=== PATIENT | female | born 1985 | race Caucasian/White ===

== ENCOUNTER → 2016-08-24 | Outpatient (CLI) | payer OTHER ==
[2016-08-24 11:10] LABS: CH 32.5; CHCM 33.6; HCT 31.2 % (34.0-46.0); HDW 3.57; HGB 10.3 gm/dL (11.4-16.0); MCH 32.2 pg (25.0-35.0); MCHC 32.9 g/dL (31.0-37.0); MCV 97.7 fL (80.0-100.0); Mean Platelet Volume 7.2; Poikilocytosis Slight; RBC 3.19 m/uL (3.80-5.40); RDW 14.4 % (11.5-15.5); WBC 11.3 k/uL (3.8-10.6)
== END | disposition home or self-care (01) ==
LOC: LABWHC1 10:16
PROVIDERS: ATTEND Obstetrics & Gynecology
DX: Z34.92 Encounter for supervision of normal pregnancy, unspecified, second trimester (principal); Z3A.00 Weeks of gestation of pregnancy not specified
CPT/HCPCS: 36415; 82950; 85027

== ENCOUNTER → 2016-09-05 | Outpatient (CLI) | payer OTHER ==
--- NOTE | 2016-09-05 14:52 | US ---
EXAMINATION TYPE: US OB >= 14 wk fetus early third trimester DATE OF EXAM: 09/05/2016 12:55 PM COMPARISON: See PACS first trimester ultrasound May 18, 2016. CLINICAL HISTORY: O36.63X0 LARGE FOR DATES, patient has had [facility] ultras[facility] at office, [facility], she has epilepsy TECHNIQUE: Transabdominal (TA) pelvic ultrasound GESTATIONAL AGE / DATING Physician Established: (28 weeks/4 days) EDC: 11/24/16 Dates by LMP: (28 weeks/4 days) EDC: 11/24/16 Dates by First Scan: (28 weeks/4 days) EDC: 11/22/16 Dates by Current Scan: (28 weeks/5 days) EDC: 11/23/16 SURVEY IUP: Single PLACENTA: Anterior PREVIA: No Previa PATRICK: 10.8 cm CERVICAL LENGTH (transabdominal: norm > 3.0cm): 3.2 cm BIOMETRY PRESENTATION: Vertex LIE: Transverse with head maternal Right BPD: 7.2 cm 29 weeks / 0 days HC: 27.9 cm 29 weeks / 2 days AC: 24.0 cm 28 weeks / 2 days FL: 5.3 cm 28 weeks / 0 days ESTIMATED WEIGHT IN GRAMS: 1206 grams ESTIMATED WEIGHT IN LBS/OZS: 2 lbs. 11 oz. WEIGHT PERCENTAGE BASED ON ESTABLISHED DATES: 27% HC/AC: 1.1 FL/AC: 22.0 HEART RATE: 159 bpm TECHNOLOGIST IMPRESSION: Dates as above. Single live intrauterine gestation is redemonstrated. Normal cephalad presentation to fetus is curren tly identified. An amniotic fluid index is within normal limits. There is no ultrasound evidence for placenta previa. biometry measurements are within normal limits as detailed above on current st udy. IMPRESSION:As above
== END | disposition home or self-care (01) ==
LOC: RADUSWWP 12:21
PROVIDERS: ATTEND Obstetrics & Gynecology
DX: O36.63X0 Maternal care for excessive fetal growth, third trimester, not applicable or unspecified (principal)
CPT/HCPCS: 76805

== ENCOUNTER → 2016-09-27 | Outpatient (CLI) | payer OTHER ==
--- NOTE | 2016-09-27 12:07 | US ---
EXAMINATION TYPE: US OB anatomy transabd DATE OF EXAM: 09/27/2016 10:57 AM COMPARISON: In pacs HISTORY: Large for dates, 3, para 2 TECHNIQUE: Transabdominal (TA) scanning. FINDINGS: EXAM MEASUREMENTS: GESTATIONAL AGE / DATING Physician Established: (31 weeks/5 days) EDC: 11/24/2016 Dates by LMP: (31 weeks/5 days) EDC: 11/24/2016 Dates by First Scan: (32 weeks/0 days) EDC: 11/22/2016 Dates by Current Scan for: (30 weeks/3 days) EDC: 12/03/2016 This is performed 3W1D from the prior scan. On prior exam, the child measured 28W5D. Expected measu rements today would be 31W6D. SURVEY IUP: Single PLACENTA: Fundal / Anterior PREVIA: No previa PATRICK: 15.1 cm Normal CERVICAL LENGTH (transabdominal: norm > 3.0cm): 3.8 cm BIOMETRY PRESENTATION: Vertex LIE: Longitudinal BPD: 7.7 cm 31 weeks / 0 days HC: 27.4 cm 30 weeks / 0 days AC: 27.3 cm 31 weeks / 3 days FL: 5.9 cm 30 weeks / 6 days ESTIMATED WEIGHT IN GRAMS: 1693 grams ESTIMATED WEIGHT IN LBS/OZS: 3 lbs. 12 oz. WEIGHT PERCENTAGE BASED ON ESTABLISHED DATE: 20.1 % vs 27.6%, previously. HC/AC: 1.00 Normal FL/AC: 21.69 Normal HEART RATE: 159 bpm RHYTHM: Normal ANATOMY SEEN (within normal limits): Midline Falx Cavus Septi Pellucidi Four Chamber Heart Outflow tracts: RVOT Stomach Situs Nose / Lips Diaphragm Kidneys (bilateral) Bladder Three Vessel Cord ANATOMY NOT SEEN: Due to advanced age, 3rd trimester Lateral Vent Cisterna Magna Cerebellum (varies with age) Choroid Plexus (bilateral) Outflow tracts: LVOT Longitudinal Spine Transverse Spine Arms (bilateral) Legs (bilateral) Cord Insert IMPRESSION: 1. Single live intrauterine with estimated gestational age of 31 weeks 5 days by LMP. Curre nt ultrasound biometry (30 weeks 3 days) is smaller (with 1W3D less growth than expected from 09/05/16) but still remains concordant and within the range of expected error. Follow-up as clinically indicat ed. Estimated weight percentile has moved from the 28th percentile to the 20th percentile. 2. A number of structures on the survey were suboptimally visualized due to relatively advanced age. Please see above.
== END | disposition home or self-care (01) ==
LOC: RADUSWWP 10:25
PROVIDERS: ATTEND Obstetrics & Gynecology
DX: O36.63X0 Maternal care for excessive fetal growth, third trimester, not applicable or unspecified (principal); Z3A.31 31 weeks gestation of pregnancy
CPT/HCPCS: 76811

== ENCOUNTER → 2016-10-06 | Outpatient (CLI) | payer OTHER | END | disposition home or self-care (01) | LOC: LABWHC1 10:06 | PROVIDERS: ATTEND Psychiatry & Neurology Neurology | DX: Z34.90 Encounter for supervision of normal pregnancy, unspecified, unspecified trimester (principal); Z3A.20 20 weeks gestation of pregnancy | CPT/HCPCS: 36415; 80175 ==

== ENCOUNTER → 2016-10-20 | Outpatient (CLI) | payer OTHER ==
--- NOTE | 2016-10-20 11:28 | US ---
EXAMINATION TYPE: US OB anatomy transabd DATE OF EXAM: 10/20/2016 9:51 AM COMPARISON: Previous study dated 09/27/2016 HISTORY: LGA TECHNIQUE: Transabdominal (TA) EXAM MEASUREMENTS: GESTATIONAL AGE / DATING Physician Established: (35 weeks/0 days) EDC: 11/24/16 Dates by LMP: (35 weeks/0 days) EDC: 11/24/16 Dates by First Scan: (35 weeks/2 days) EDC: 11/22/16 Dates by Current Scan for: (34 weeks/4 days) EDC: 11/27/16 SURVEY IUP: Single PLACENTA: Anterior PREVIA: No previa PATRICK: 11.7 cm CERVICAL LENGTH (transabdominal: norm > 3.0cm): 3.3 cm .) BIOMETRY PRESENTATION: Vertex BPD: 8.7 cm 35 weeks / 1 days HC: 31.7 cm 35 weeks / 5 days AC: 30.7 cm 34 weeks / 5 days FL: 6.3 cm 32 weeks / 4 days ESTIMATED WEIGHT IN GRAMS: 2390 grams ESTIMATED WEIGHT IN LBS/OZS: 5 lbs. 4 oz. WEIGHT PERCENTAGE BASED ON ESTABLISHED DATE: 26% HC/AC: 1.0 FL/AC: 20.5 HEART RATE: 147 bpm RHYTHM: Normal ANATOMY SEEN (within normal limits): Stomach Four Chamber Heart Kidneys (bilateral) Longitudinal Spine Transverse Spine Diaphragm Cavus Septi Pellucidi Midline Falx Nose / Lips ANATOMY NOT SEEN: * Lateral Vent (< 1 cm) cm * Cisterna Magna (< 1.1 cm) cm * Nuchal Fold (< 0.6 cm) cm * Cerebellum (varies with age) cm Choroid Plexus (bilateral) Outflow tracts: LVOT/RVOT Situs Bladder Cord Insert Three Vessel Cord Arms (bilateral) Legs (bilateral) IMPRESSION: DURAN FETUS PRESENT IN A VERTEX LIE WITH A GESTATIONAL AGE OF 34 WEEKS 4 DAYS +/- 3 WEEKS. ESTIMA CLEMENTINE DATE OF CONFINEMENT BASED ON THIS EXAMINATION IS 11/27/2016. PLEASE NOTE THAT THE MORPHOLOGIC EXAMINATION IS LIMITED.
== END | disposition home or self-care (01) ==
LOC: RADUSWWP 09:08
PROVIDERS: ATTEND Obstetrics & Gynecology
DX: O36.63X0 Maternal care for excessive fetal growth, third trimester, not applicable or unspecified (principal); Z3A.34 34 weeks gestation of pregnancy
CPT/HCPCS: 76811

== ENCOUNTER 2016-11-17 06:00 | Inpatient (IN) | payer OTHER ==
--- NOTE | 2016-11-17 06:25 | P.HPOB ---
History of Present Illness H&P Date: 11/17/16 Chief Complaint: Patient is presenting for elective induction of labor. This patient is a pleasant 31-year-old 4 para 2 female estimated date of confinement 11/24/2016 estimated gestational age 39-0/7 weeks who presents to labor and delivery for induction of labor. Patient's is been complicated by known maternal seizure disorder and Lamictal use. Patient has seen maternal medicine has had normal level III and heart echo. She 's had normal nonstress testing and antepartum surveillance. He now presents for delivery. Review of Systems Constitutional: Denies chills, Denies fever Ears, nose, mouth and throat: Denies headache, Denies sore throat Cardiovascular: Denies chest pain, Denies shortness of breath Respiratory: Denies cough Gastrointestinal: Reports heartburn Genitourinary: Reports Menstruation: Reports amenorrhea Integumentary: Denies pruritus, Denies rash Neurological: Reports seizures (Patient has a history of grand mal seizures) Past Medical History Past Medical History: Seizure Disorder (Grand mal seizures) History of Any Multi-Drug Resistant Organisms: None Reported Additional Past Surgical History / Comment(s): Patient has had a D&C for a missed Past Anesthesia/Blood Transfusion Reactions: No Reported Reaction Past Psychological History: No Psychological Hx Reported Smoking Status: Never smoker Past Alcohol Use History: None Reported Past Drug Use History: None Reported Medications and Allergies Home Medications Medication Instructions Recorded Confirmed Type lamoTRIgine [lamoTRIgine] 2 PO 11/17/16 History Allergies Allergy/AdvReac Type Severity Reaction Status Date / Time No Known Allergies Allergy Verified 11/17/16 06:22 Exam - OBG Physical Exam Abdomen: bowel sounds normal, no diffuse tenderness, no bruit present, no guarding noted, no hepatomegaly, no splenomegaly, no mass Vulva: both: normal Cervix: no lesion (Cervix is 2 cm in the office.), no discharge Uterus: enlarged (Fundal height is consistent with a term .) Results blood work shows she is O positive, rubella nonimmune, RPR nonreactive , hepatitis B negative, Glucola was normal, level III ultrasound and heart echo were normal, group B strep was negative (although she has a history of a positive strep in a previous ). Assessment and Plan (1) Elective induction of labor planned Narrative/Plan: This is a anisa 31-year-old 4 para 2 female 39 weeks gestation who presents to labor and delivery for induction of labor. Patient's group B strep was negative, however she has a history of positive strep previous therefore will be treated prophylactically. Plan is induction of labor and anticipate vaginal delivery. Status: Acute (2) Seizure disorder Status: Chronic (3) History of group B Streptococcus (GBS) infection Status: Acute
[2016-11-17] MEDS: LACTATED RINGERS 1,000 ML IV SCH ×3 (06:35→13:05)
[2016-11-17] MEDS ORDERED: AMPICILLIN 2,000 MG in SODIUM CHLORIDE 0.9% 100 ML IVPB STA (06:45)
[2016-11-17] MEDS ORDERED: OXYTOCIN 30 UNITS/500 ML NS 30 UNIT in SALINE 1 500ML.BAG IV SCH (06:45)
[2016-11-17] MEDS ORDERED: TERBUTALINE 1 MG/ML VIAL SQ PRN (06:45)
[2016-11-17] MEDS ORDERED: METHYLERGONOVINE 0.2 MG/ML 1 ML AMP IM PRN (06:45)
[2016-11-17] MEDS ORDERED: OXYTOCIN 10 UNIT/ML 1 ML VIAL IM PRN (06:45)
[2016-11-17] MEDS ORDERED: CARBOPROST TROMETHAMINE 250 MCG/ML 1 ML AMP IM PRN (06:45)
[2016-11-17] MEDS ORDERED: LIDOCAINE 1% (PF) 10 MG/ML (30 ML SDV) SQ PRN (06:45)
[2016-11-17 06:59] LABS: Anisocytosis Slight; Basophils # (A) 0.1 k/uL (0-0.2); Basophils % (A) 1 %; CH 28.1; CHCM 31.9; Eosinophils # (A) 0.1 k/uL (0-0.7); Eosinophils % (A) 1 %; HCT 30.3 % (34.0-46.0); HDW 4.06; HGB 9.8 gm/dL (11.4-16.0); Hypochromasia Moderate; Luc # (Auto) 0.24; Luc % (Auto) 3; Lymphocytes # (A) 2.2 k/uL (1.0-4.8); Lymphocytes % (A) 22 %; MCH 28.6 pg (25.0-35.0); MCHC 32.3 g/dL (31.0-37.0); MCV 88.5 fL (80.0-100.0); Mean Platelet Volume 7.2; Monocytes # (A) 0.6 k/uL (0-1.0); Monocytes % (A) 6 %; Neutrophils # (A) 6.7 k/uL (1.3-7.7); Neutrophils % (A) 68 %; Poikilocytosis Moderate; RBC 3.42 m/uL (3.80-5.40); RDW 16.7 % (11.5-15.5); WBC 9.9 k/uL (3.8-10.6); WBC (Perox) 10.32
[2016-11-17 08:54] VITALS: BMI 30.8
[2016-11-17] MEDS: AMPICILLIN 1,000 MG in SODIUM CHLORIDE 0.9% 50 ML IVPB SCH ×2 (10:57→15:30)
[2016-11-17] MEDS ORDERED: fentaNYL (PF) 50 MCG/ML 5 ML AMP ONE (12:49)
[2016-11-17] MEDS ORDERED: BUPIVACAINE (PF) 0.25% 30 ML VIAL ONE (12:49)
[2016-11-17] MEDS ORDERED: SODIUM CHLORIDE 0.9% 100 ML BAG ONE (12:49)
[2016-11-17] MEDS ORDERED: BUPIVACAINE (PF) 0.25% 25 ML, fentaNYL (PF) 200 MCG in SODIUM CHLORIDE 0.9% 71 ML EPIDURAL ONE (15:01)
[2016-11-17] MEDS ORDERED: ZOLPIDEM 5 MG TAB PO PRN (17:52)
[2016-11-17] MEDS ORDERED: ACETAMINOPHEN TAB 325 MG TAB PO PRN (17:52)
[2016-11-17] MEDS ORDERED: IBUPROFEN 600 MG TAB PO PRN (17:52)
[2016-11-17] MEDS ORDERED: diphenhydrAMINE 50 MG/ML 1 ML VIAL IVP PRN (17:52)
[2016-11-17] MEDS ORDERED: SIMETHICONE 80 MG CHEWABLE PO PRN (17:52)
[2016-11-17] MEDS ORDERED: BENZOCAINE/MENTHOL SPRAY 1 GM/SPRAY AEROSOL TOPICAL PRN (17:52)
[2016-11-17] MEDS ORDERED: diphenhydrAMINE 25 MG CAP PO PRN (17:52)
[2016-11-17] MEDS ORDERED: WITCH HAZEL 1 EACH MED..PAD TOPICAL PRN (17:52)
[2016-11-17] MEDS ORDERED: BISACODYL 10 MG SUPP RECTAL PRN (17:52)
[2016-11-17] MEDS ORDERED: Acetaminophen-Codeine 300-30mg TAB PO PRN ×2 (17:52)
[2016-11-17] MEDS ORDERED: HYDROCORTISONE 2.5% RECTAL CREAM 30 GM TUBE RECTAL PRN (17:52)
[2016-11-17] MEDS ORDERED: LANOLIN CREAM 5 GM TUBE TOPICAL PRN (17:52)
--- NOTE | 2016-11-17 17:57 | P.PROBDLV ---
Vaginal Delivery Note - . Vaginal Delivery Note: Normal vaginal delivery viable male infant Apgars are 9 and 9 delivery time is 1737 hrs. Please see dictated H&P for intimate details of this patient's admission. Brief summary this is a pleasant 31-year-old 4 para 2 female 39-0/7 weeks gestation who is admitted to labor and delivery for induction of labor. On admission patient's cervix is 2-3 cm dilated. She is artificial rupture membranes for clear fluid. Labor is induced with Pitocin per protocol. Patient 's labor did progress. Patient had an epidural for pain control. Patient's labor progresses normally and she gets to complete. She pushes the head to the perineum. Posterior perineum was infiltrated with 1% lidocaine and a midline episiotomy is made. We then have controlled delivery of the 's head over the perineum. Mouth and nares are bulb suctioned. There is no evidence of a nuchal cord. With gentle downward traction we then have delivery the anterior and posterior shoulder and rest this 's body. This is a vigorous viable male infant Apgars are 9 and 9 delivery time is 1737 hrs. After delivery of the the umbilical cord is doubly clamped and cut and appears to be trivascular. Placenta spontaneously delivered intact. Inspection of the perineum shows a first-degree perineal laceration which is repaired with 3-0 Vicryl in the usual fashion. Excellent reapproximation is noted. All counts are correct 3. There are no complications. Infant and mother are stable delivery room.
[2016-11-17] MEDS ORDERED: SENNOSIDES-DOCUSATE SODIUM 1 EACH TAB PO SCH (20:00)
--- NOTE | 2016-11-18 06:42 | P.PNOBGVD ---
Subjective - Subjective Patient reports: Reports appetite normal, Reports voiding normally, Reports pain well controlled, Reports ambulating normally : doing well Objective - Latest Vital Signs Latest vital signs: Vital Signs Temp Pulse Pulse Resp BP BP 11/18/16 04:00 98.1 F 72 16 97/59 11/18/16 00:00 98.4 F 84 16 104/69 11/17/16 19:54 98.2 F 98 98 18 145/70 11/17/16 19:24 98.3 F 75 18 150/70 11/17/16 18:54 88 16 159/77 11/17/16 18:39 88 16 150/80 11/17/16 18:24 83 16 140/75 11/17/16 18:09 88 16 125/70 11/17/16 17:54 98.9 F 84 16 115/55 11/17/16 06:44 97 F L 95 16 115/64 Intake and Output 11/17/16 11/17/16 11/18/16 14:59 22:59 06:59 Intake Total 2200 160.75 900 Output Total 200 Balance 2200 -39.25 900 Intake: IV 2200 900 Ampicillin 1,000 mg In 100 Sodium Chloride 0.9% 50 ml @ 100 mls/hr IVPB Q4H JAMES Rx#:[id number] Ampicillin 2,000 mg In 100 Sodium Chloride 0.9% 100 ml @ 200 mls/hr IVPB ONCE STA Rx#:[id number] Lactated Ringers 1,000 ml 2000 900 @ 125 mls/hr IV .Q8H JAMES Rx#:[id number] Intake, IV Titration 160.75 Amount Oxytocin 30 Units/500 ml 160.75 Ns 30 unit In Saline 1 500ml.bag @ 1 MILLIUNIT/ MIN 1 mls/hr IV .Q24H JAMES Rx#:[id number] Output: Estimated Blood Loss 200 Other: # Voids 2 - Exam Lungs: bilateral: normal Chest: Normal S1, Normal S2 Extremities: Present: normal Abdomen: Present: normal appearance, soft Uterus: Present: normal, firm - Labs Labs: Abnormal Lab Results - Last 24 Hours (Table) 11/17/16 Range/Units 06:35 RBC 3.42 L (3.80-5.40) m/uL Hgb 9.8 L (11.4-16.0) gm/dL Hct 30.3 L (34.0-46.0) % RDW 16.7 H (11.5-15.5) % Assessment and Plan (1) Elective induction of labor planned Narrative/Plan: day #1. Patient is resting without complaints and wishes to go home later today. Vital signs are stable and she is afebrile. Uterus is firm nontender she's having normal lochia. My impression this is a normal course. Plan is to continue routine care discharge home later today. Current Visit: Yes Status: Acute Code(s): [id number] - SNOMED Code(s): 739050789 (2) Seizure disorder Current Visit: Yes Status: Chronic Code(s): G40.909 - EPILEPSY, UNSP, NOT INTRACTABLE, WITHOUT STATUS EPILEPTICUS SNOMED Code(s): 839502936 (3) History of group B Streptococcus (GBS) infection Current Visit: Yes Status: Acute Code(s): Z86.19 - PERSONAL HISTORY OF OTHER INFECTIOUS AND PARASITIC DISEASES SNOMED Code(s): 158485895
--- NOTE | 2016-11-18 06:43 | P.DS ---
Providers Date of admission: 11/17/16 06:13 Expected date of discharge: 11/18/16 Attending physician: Nii Qureshi Primary care physician: Stated None - Discharge Diagnosis(es) (1) Elective induction of labor planned Current Visit: Yes Status: Acute (2) Seizure disorder Current Visit: Yes Status: Chronic (3) History of group B Streptococcus (GBS) infection Current Visit: Yes Status: Acute Hospital Course: Please see dictated H&P for intimate details of this patient's admission. Brief summary this is a pleasant 31-year-old 4 para 2 female admitted to labor and delivery for induction of labor. Patient is admitted has uncomplicated induction of labor goes on have a vaginal delivery viable male . Please dictated delivery note. day #1 patient without complaints and wishes to go home. [place] be stable for discharge home follow up with me in 6 weeks. Procedures: Induction of labor and normal vaginal delivery. Patient Condition at Discharge: Good Plan - Discharge Summary New Discharge Prescriptions: Acetaminophen-Codeine 300-30mg [Tylenol w/codeine #3] 1 - 2 each PO Q4HR PRN # 30 tab PRN Reason: Mild Pain exceeding Tylenol Ibuprofen [Motrin] 600 mg PO Q6HR PRN #40 tab PRN Reason: Mild Pain Or Fever >= 100.5 Discharge Medication List Acetaminophen-Codeine 300-30mg [Tylenol w/codeine #3] 1 - 2 each PO Q4HR PRN # 30 tab 11/17/16 [Rx] Ibuprofen [Motrin] 600 mg PO Q6HR PRN #40 tab 11/17/16 [Rx] lamoTRIgine [lamoTRIgine] 200 mg PO BID 11/17/16 [History] Follow up Appointment(s)/Referral(s): Nii Qureshi MD [STAFF PHYSICIAN] - 12/26/16 8:45 am Patient Instructions/Handouts: Vaginal Delivery (DC) Activity/Diet/Wound Care/Special Instructions: No intercourse or anything per vagina for 6 weeks. Please call if any fever, chills, excessive vaginal bleeding, and/or abdominal pain. Discharge Disposition: HOME SELF-CARE
[2016-11-18 13:43] VITALS: RESP 20
[2016-11-18 17:24] VITALS: BP 111/79; PULSE 84; TEMP 98
== END 2016-11-18 18:15 | disposition home or self-care (01) | DRG 775 ==
LOC: 4FBP 06:13
PROVIDERS: ADMIT Obstetrics & Gynecology; ATTEND Obstetrics & Gynecology
PROC: 10E0XZZ Delivery of Products of Conception, External Approach (ICD-10-PCS; principal; 2016-11-17)
PROC: 10907ZC Drainage of Amniotic Fluid, Therapeutic from Products of Conception, Via Natural or Artificial Opening (ICD-10-PCS; 2016-11-17)
PROC: 0W8NXZZ Division of Female Perineum, External Approach (ICD-10-PCS; 2016-11-17)
PROC: 0HQ9XZZ Repair Perineum Skin, External Approach (ICD-10-PCS; 2016-11-17)
PROC: 3E033VJ Introduction of Other Hormone into Peripheral Vein, Percutaneous Approach (ICD-10-PCS; 2016-11-17)
PROC: 00HU33Z Insertion of Infusion Device into Spinal Canal, Percutaneous Approach (ICD-10-PCS; 2016-11-17)
DX: O99.354 Diseases of the nervous system complicating childbirth (principal); G40.409 Other generalized epilepsy and epileptic syndromes, not intractable, without status epilepticus; Z37.0 Single live birth; O70.0 First degree perineal laceration during delivery; Z3A.39 39 weeks gestation of pregnancy
CPT/HCPCS: 85025; 88307

== ENCOUNTER 2017-01-01 11:56 | Emergency (ER) | payer OTHER ==
--- NOTE | 2017-01-01 12:59 | ED ---
General Adult HPI - General Chief complaint: Chest Pain Stated complaint: CHEST PAIN, FAMILY Hx Time Seen by Provider: 01/01/17 12:25 Source: patient, RN notes reviewed Mode of arrival: ambulatory Limitations: no limitations - History of Present Illness Initial comments: This is a 31-year-old female who presents emergency department stating she started having some chest heaviness last night and then today it continued and she was having some tingling down her arm. Patient states she did have a slight cough but nothing productive. Patient denied any fever or chills. Patient denied making the pain worse with any exertion. Patient denies any swelling in her legs or calf pain. Patient denies any history of diabetes hypertension and high cholesterol or smoking. Patient denies being on any control. Patient denies any family history of heart disease. Patient denies any abdominal pain today. Patient denies nausea vomiting or diarrhea - Related Data Home Medications Medication Instructions Recorded Confirmed lamoTRIgine [lamoTRIgine] 200 mg PO BID 11/17/16 01/01/17 Folic Acid [Folic Acid] 1 mg PO BID 01/01/17 01/01/17 lamoTRIgine [LaMICtal] 25 mg PO BID 01/01/17 01/01/17 Allergies Allergy/AdvReac Type Severity Reaction Status Date / Time No Known Allergies Allergy Verified 01/01/17 13:23 Review of Systems ROS Statement: Those systems with pertinent positive or pertinent negative responses have been documented in the HPI. ROS Other: All systems not noted in ROS Statement are negative. Past Medical History Past Medical History: Seizure Disorder History of Any Multi-Drug Resistant Organisms: None Reported Additional Past Surgical History / Comment(s): Patient has had a D&C for a missed Past Anesthesia/Blood Transfusion Reactions: No Reported Reaction Past Psychological History: No Psychological Hx Reported Smoking Status: Never smoker Past Alcohol Use History: None Reported Past Drug Use History: None Reported - Past Family History Father Family Medical History: Hypertension General Exam - General Exam Comments Initial Comments: GENERAL: Patient is well-developed and well-nourished. Patient is nontoxic and well- hydrated and is in no acute distress. ENT: Neck is soft and supple. No significant lymphadenopathy is noted. Oropharynx is clear. Moist mucous membranes. Neck has full range of motion without eliciting any pain. EYES: The sclera were anicteric and conjunctiva were pink and moist. Extraocular movements were intact and pupils were equal round and reactive to light. Eyelids were unremarkable. PULMONARY: Unlabored respirations. Good breath sounds bilaterally. No audible rales rhonchi or wheezing was noted. CARDIOVASCULAR: There is a regular rate and rhythm without any murmurs gallops or rubs. ABDOMEN: Soft and nontender with normal bowel sounds. No palpable organomegaly was noted. There is no palpable pulsatile mass. SKIN: Skin is clear with no lesions or rashes and otherwise unremarkable. NEUROLOGIC: Patient is alert and oriented x3. Cranial nerves II through XII are grossly intact. Motor and sensory are also intact. Normal speech, volume and content. Symmetrical smile. MUSCULOSKELETAL: Normal extremities with adequate strength and full range of motion. No lower extremity swelling or edema. No calf tenderness. LYMPHATICS: No significant lymphadenopathy is noted PSYCHIATRIC: Normal psychiatric evaluation. Normal interpersonal interactions appears functionally intact in deals appropriately with others. No signs of depression. No signs of anxiety. No delusions. No hallucinations. Limitations: no limitations Course Vital Signs 01/01/17 01/01/17 12:21 12:51 Temperature 98.0 F Pulse Rate 79 79 Respiratory 15 18 Rate Blood Pressure 126/56 113/69 O2 Sat by Pulse 95 95 Oximetry Medical Decision Making - Medical Decision Making EKG shows a normal sinus rhythm at 71 bpm NH interval 136 QRS is 98 QT interval 412 QTC is 447. Patient's EKG shows no ST segment elevation or depression or T wave abnormalities are noted Chest x-ray shows no acute normalities. Patient did not want her oxygen because she was not short of breath. - Lab Data Result diagrams: 01/01/17 13:06 01/01/17 13:06 Lab Results 01/01/17 01/01/17 01/01/17 Range/Units 13:06 13:06 13:06 WBC 5.6 (3.8-10.6) k/uL RBC 4.12 (3.80-5.40) m/uL Hgb 12.0 (11.4-16.0) gm/dL Hct 36.6 (34.0-46.0) % MCV 88.8 (80.0-100.0) fL MCH 29.0 (25.0-35.0) pg MCHC 32.7 (31.0-37.0) g/dL RDW 17.9 H (11.5-15.5) % Plt Count 315 (150-450) k/uL Neutrophils % 74 % Lymphocytes % 18 % Monocytes % 4 % Eosinophils % 1 % Basophils % 1 % Neutrophils # 4.2 (1.3-7.7) k/uL Lymphocytes # 1.0 (1.0-4.8) k/uL Monocytes # 0.2 (0-1.0) k/uL Eosinophils # 0.1 (0-0.7) k/uL Basophils # 0.0 (0-0.2) k/uL Anisocytosis Slight PT (9.0-12.0) sec INR (<1.1) APTT (22.0-30.0) sec Sodium 142 (137-145) mmol/L Potassium 3.8 (3.5-5.1) mmol/L Chloride 105 (98-107) mmol/L Carbon Dioxide 27 (22-30) mmol/L Anion Gap 10 mmol/L BUN 7 (7-17) mg/dL Creatinine 0.95 (0.52-1.04) mg/dL Est GFR (MDRD) Af Amer >60 (>60 ml/min/1.73 sqM) Est GFR (MDRD) Non-Af >60 (>60 ml/min/1.73 sqM) Glucose 113 H (74-99) mg/dL Calcium 9.1 (8.4-10.2) mg/dL Magnesium 2.1 (1.6-2.3) mg/dL Total Bilirubin 0.5 (0.2-1.3) mg/dL AST 26 (14-36) U/L ALT 22 (9-52) U/L Alkaline Phosphatase 145 H (38-126) U/L Total Creatine Kinase 75 (30-135) U/L CK-MB (CK-2) 0.4 (0.0-2.4) ng/mL CK-MB (CK-2) Rel Index 0.5 Troponin I <0.012 (0.000-0.034) ng/mL Total Protein 7.3 (6.3-8.2) g/dL Albumin 4.2 (3.5-5.0) g/dL 01/01/17 Range/Units 13:06 WBC (3.8-10.6) k/uL RBC (3.80-5.40) m/uL Hgb (11.4-16.0) gm/dL Hct (34.0-46.0) % MCV (80.0-100.0) fL MCH (25.0-35.0) pg MCHC (31.0-37.0) g/dL RDW (11.5-15.5) % Plt Count (150-450) k/uL Neutrophils % % Lymphocytes % % Monocytes % % Eosinophils % % Basophils % % Neutrophils # (1.3-7.7) k/uL Lymphocytes # (1.0-4.8) k/uL Monocytes # (0-1.0) k/uL Eosinophils # (0-0.7) k/uL Basophils # (0-0.2) k/uL Anisocytosis PT 10.3 (9.0-12.0) sec INR 1.0 (<1.1) APTT 22.2 (22.0-30.0) sec Sodium (137-145) mmol/L Potassium (3.5-5.1) mmol/L Chloride (98-107) mmol/L Carbon Dioxide (22-30) mmol/L Anion Gap mmol/L BUN (7-17) mg/dL Creatinine (0.52-1.04) mg/dL Est GFR (MDRD) Af Amer (>60 ml/min/1.73 sqM) Est GFR (MDRD) Non-Af (>60 ml/min/1.73 sqM) Glucose (74-99) mg/dL Calcium (8.4-10.2) mg/dL Magnesium (1.6-2.3) mg/dL Total Bilirubin (0.2-1.3) mg/dL AST (14-36) U/L ALT (9-52) U/L Alkaline Phosphatase (38-126) U/L Total Creatine Kinase (30-135) U/L CK-MB (CK-2) (0.0-2.4) ng/mL CK-MB (CK-2) Rel Index Troponin I (0.000-0.034) ng/mL Total Protein (6.3-8.2) g/dL Albumin (3.5-5.0) g/dL Disposition Clinical Impression: Atypical chest pain Disposition: HOME SELF-CARE Condition: Good Instructions: Chest Pain (ED) Additional Instructions: Patient returns as any shortness of breath worsening of the symptoms or any new symptoms. Referrals: None,Stated [Primary Care Provider] - 1-2 days Time of Disposition: 14:03
[2017-01-01 13:25] LABS: Anisocytosis Slight; Basophils % (A) 1 %; CH 28.7; CHCM 32.3; Eosinophils # (A) 0.1 k/uL (0-0.7); Eosinophils % (A) 1 %; HCT 36.6 % (34.0-46.0); HDW 2.85; Luc # (Auto) 0.09; Luc % (Auto) 2; Lymphocytes % (A) 18 %; MCHC 32.7 g/dL (31.0-37.0); MCV 88.8 fL (80.0-100.0); Mean Platelet Volume 6.3; Monocytes # (A) 0.2 k/uL (0-1.0); Monocytes % (A) 4 %; Neutrophils # (A) 4.2 k/uL (1.3-7.7); Neutrophils % (A) 74 %; RBC 4.12 m/uL (3.80-5.40); RDW 17.9 % (11.5-15.5); WBC 5.6 k/uL (3.8-10.6)
[2017-01-01 13:28] LABS: ALT 22 U/L (9-52); AST 26 U/L (14-36); Alkaline Phosphatase 145 U/L (38-126); Anion Gap 10 mmol/L; Blood Urea Nitrogen 7 mg/dL (7-17); Calcium 9.1 mg/dL (8.4-10.2); Carbon Dioxide 27 mmol/L (22-30); Chloride 105 mmol/L (98-107); Glucose 113 mg/dL (74-99); Magnesium 2.1 mg/dL (1.6-2.3); Non-African American GFR(MDRD) >60 (>60 ml/min/1.73 sqM); Potassium 3.8 mmol/L (3.5-5.1); Sodium 142 mmol/L (137-145); Total Bilirubin 0.5 mg/dL (0.2-1.3); Total Protein 7.3 g/dL (6.3-8.2)
[2017-01-01 13:29] LABS: Partial Thromboplastin Time 22.2 sec (22.0-30.0); Prothrombin Time 10.3 sec (9.0-12.0)
--- NOTE | 2017-01-01 13:42 | XR ---
EXAMINATION TYPE: XR chest 2V DATE OF EXAM: 01/01/2017 COMPARISON: NONE HISTORY: Chest pain today. TECHNIQUE: Frontal and lateral views of the chest are obtained. FINDINGS: There is no focal air space opacity, pleural effusion, or pneumothorax seen. The cardiac silhouette size is within normal limits. Scoliosis in the lumbar spine is present. IMPRESSION: No acute process.
[2017-01-01 13:44] LABS: Creatine Kinase 75 U/L (30-135)
[2017-01-01 13:57] LABS: Creatine Kinase MB 0.4 ng/mL (0.0-2.4); Troponin I <0.012 ng/mL (0.000-0.034)
[2017-01-01 14:12] VITALS: BP 111/63; PULSE 71; RESP 16; TEMP 98.3
== END 2017-01-01 14:15 | disposition home or self-care (01) ==
LOC: EC 11:56
DX: R07.89 Other chest pain (principal); R05 Cough; G40.909 Epilepsy, unspecified, not intractable, without status epilepticus; Z79.899 Other long term (current) drug therapy
CPT/HCPCS: 36415; 71020; 80053; 82550; 82553; 83735; 84484; 85025; 85610; 85730; 93005; 99285

== ENCOUNTER → 2018-02-04 | Outpatient (CLI) | payer OTHER | END | disposition home or self-care (01) | LOC: LABWHC1 09:49 | PROVIDERS: ATTEND Psychiatry & Neurology Neurology | DX: G40.209 Localization-related (focal) (partial) symptomatic epilepsy and epileptic syndromes with complex partial seizures, not intractable, without status epilepticus (principal) | CPT/HCPCS: 36415; 80175 ==

== ENCOUNTER 2018-03-30 18:33 | Emergency (ER) | payer OTHER ==
[2018-03-30 18:42] VITALS: BP 124/69; PULSE 95; RESP 20; TEMP 98
--- NOTE | 2018-03-30 18:45 | ED ---
ENT HPI - General Chief complaint: Dental/Oral Stated complaint: dental pain Time Seen by Provider: 03/30/18 18:40 Source: patient, RN notes reviewed Mode of arrival: ambulatory Limitations: no limitations - History of Present Illness Initial comments: 32-year-old female presents emergency Department chief complaint of left lower dental swelling. Patient states that she has a fractured tooth at them from her wisdom tooth. Patient states that she pressed an area and some white material expressed. Patient states is minimal pain denies any fevers, chills, neck pain, headache or dizziness. Denies any difficulty swallowing. - Related Data Home Medications Medication Instructions Recorded Confirmed lamoTRIgine 200 mg PO BID 11/17/16 03/30/18 Folic Acid 1 mg PO BID 01/01/17 03/30/18 lamoTRIgine [LaMICtal] 25 mg PO BID 01/01/17 03/30/18 Previous Rx's Medication Instructions Recorded Ibuprofen [Motrin] 600 mg PO Q8HR PRN #30 tab 03/30/18 Penicillin V Potassium [Pen Vee K] 500 mg PO QID #40 tablet 03/30/18 Allergies Allergy/AdvReac Type Severity Reaction Status Date / Time No Known Allergies Allergy Verified 03/30/18 18:42 Review of Systems ROS Statement: Those systems with pertinent positive or pertinent negative responses have been documented in the HPI. ROS Other: All systems not noted in ROS Statement are negative. Past Medical History Past Medical History: Seizure Disorder History of Any Multi-Drug Resistant Organisms: None Reported Additional Past Surgical History / Comment(s): Patient has had a D&C for a missed Past Anesthesia/Blood Transfusion Reactions: No Reported Reaction Past Psychological History: No Psychological Hx Reported Smoking Status: Never smoker Past Alcohol Use History: None Reported Past Drug Use History: None Reported - Past Family History Father Family Medical History: Hypertension General Exam Limitations: no limitations General appearance: alert, in no apparent distress Head exam: Present: atraumatic, normocephalic, normal inspection Eye exam: Present: normal appearance, PERRL, EOMI. Absent: scleral icterus, conjunctival injection, periorbital swelling ENT exam: Present: mucous membranes moist, TM's normal bilaterally, normal external ear exam. Absent: normal oropharynx (Left lower mandible swelling noted, dental fracture #32, 31 no drainable abscess) Neck exam: Present: normal inspection, full ROM. Absent: tenderness, meningismus, lymphadenopathy Respiratory exam: Present: normal lung sounds bilaterally. Absent: respiratory distress, wheezes, rales, rhonchi, stridor Cardiovascular Exam: Present: regular rate, normal rhythm, normal heart sounds. Absent: systolic murmur, diastolic murmur, rubs, gallop, clicks Course Vital Signs 03/30/18 18:41 Temperature 98.0 F Pulse Rate 95 Respiratory 20 Rate Blood Pressure 124/69 O2 Sat by Pulse 100 Oximetry Medical Decision Making - Medical Decision Making 32-year-old female presented for left lower dental swelling. Patient has dental abscess was started on Pen-Vee K patient will follow-up with Dr. gaspar oral surgery and return parameters were discussed. Disposition Clinical Impression: Dental abscess, Fracture of tooth Disposition: HOME SELF-CARE Condition: Stable Instructions: Dental Abscess (ED) Additional Instructions: Please return to the Emergency Department if symptoms worsen or any other concerns. Prescriptions: Ibuprofen [Motrin] 600 mg PO Q8HR PRN #30 tab PRN Reason: Pain Penicillin V Potassium [Pen Vee K] 500 mg PO QID #40 tablet Is patient prescribed a controlled substance at d/c from ED?: No Referrals: Krish Gaspar DDS [STAFF PHYSICIAN] - 1-2 days Time of Disposition: 18:45
== END 2018-03-30 18:50 | disposition home or self-care (01) ==
LOC: EC 18:33
DX: K04.7 Periapical abscess without sinus (principal); S02.5XXA Fracture of tooth (traumatic), initial encounter for closed fracture; G40.909 Epilepsy, unspecified, not intractable, without status epilepticus; Z79.899 Other long term (current) drug therapy; X58.XXXA Exposure to other specified factors, initial encounter
CPT/HCPCS: 99282

== ENCOUNTER → 2019-05-16 | Outpatient (CLI) | payer OTHER | END | disposition home or self-care (01) | LOC: LABWHC1 08:34 | PROVIDERS: ATTEND Psychiatry & Neurology Neurology | DX: G40.209 Localization-related (focal) (partial) symptomatic epilepsy and epileptic syndromes with complex partial seizures, not intractable, without status epilepticus (principal) | CPT/HCPCS: 36415; 80175 ==

== ENCOUNTER → 2019-08-29 | Outpatient (CLI) | payer OTHER | END | disposition home or self-care (01) | LOC: LABWHC1 09:12 | PROVIDERS: ATTEND Psychiatry & Neurology Neurology | DX: G40.209 Localization-related (focal) (partial) symptomatic epilepsy and epileptic syndromes with complex partial seizures, not intractable, without status epilepticus (principal) | CPT/HCPCS: 36415; 80175 ==

== ENCOUNTER → 2021-01-24 | Outpatient (CLI) | payer OTHER | END | disposition home or self-care (01) | LOC: LABWHC1 09:58 | PROVIDERS: ATTEND Psychiatry & Neurology Neurology | DX: G40.209 Localization-related (focal) (partial) symptomatic epilepsy and epileptic syndromes with complex partial seizures, not intractable, without status epilepticus (principal) | CPT/HCPCS: 36415; 80175 ==

== ENCOUNTER → 2021-09-28 | Outpatient (CLI) | payer OTHER | END | disposition home or self-care (01) | LOC: LABWHC1 08:55 | PROVIDERS: ATTEND Psychiatry & Neurology Neurology | DX: G40.209 Localization-related (focal) (partial) symptomatic epilepsy and epileptic syndromes with complex partial seizures, not intractable, without status epilepticus (principal) | CPT/HCPCS: 36415; 80175 ==

== ENCOUNTER → 2023-01-03 | Outpatient (CLI) | payer OTHER | END | disposition home or self-care (01) | LOC: LABWHC1 08:56 | PROVIDERS: ATTEND Psychiatry & Neurology Neurology | DX: G40.011 Localization-related (focal) (partial) idiopathic epilepsy and epileptic syndromes with seizures of localized onset, intractable, with status epilepticus (principal) | CPT/HCPCS: 36415; 80175 ==

== ENCOUNTER → 2023-10-11 | Outpatient (CLI) | payer BC ==
--- NOTE | 2023-10-11 14:44 | US ---
EXAMINATION TYPE: US liver DATE OF EXAM: 10/11/2023 COMPARISON: NONE CLINICAL INDICATION: Female, 38 years old with history of R74.8 ABNORMAL LEVELS OF OTHER SERUM ENZYME S; Elevated LFTs. No other pain or symptoms TECHNIQUE: Multiple sonographic images of the right upper quadrant are obtained. 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 Posterior aspect obscured by overlying gas. Gallbladder: wnl Evidence for sonographic Gale's sign: No CBD: wnl Right Kidney: No hydronephrosis or masses seen as best visualized. IMPRESSION: Some exam limitations as above. No gallstones or biliary ductal dilatation.
== END | disposition home or self-care (01) ==
LOC: RADUSWWP 09:58
PROVIDERS: ATTEND Family Medicine
DX: R74.8 Abnormal levels of other serum enzymes (principal); R79.89 Other specified abnormal findings of blood chemistry
CPT/HCPCS: 36415; 76705; 82977; 83036

== ENCOUNTER → 2024-04-14 | Outpatient (CLI) | payer BC ==
[2024-04-14 15:34] LABS: Chol/HDL Ratio 5.84 Ratio; LDL Cholesterol,Calculated 194.5 mg/dL (0.0-131.0)
== END | disposition home or self-care (01) ==
LOC: LABWHC1 10:23
PROVIDERS: ATTEND Psychiatry & Neurology Neurology
DX: E78.5 Hyperlipidemia, unspecified (principal)
CPT/HCPCS: 36415; 80061; 80175

== ENCOUNTER → 2024-04-18 | Outpatient (CLI) | payer BC | END | disposition home or self-care (01) | LOC: LABWHC1 09:17 | PROVIDERS: ATTEND Psychiatry & Neurology Neurology | DX: G40.011 Localization-related (focal) (partial) idiopathic epilepsy and epileptic syndromes with seizures of localized onset, intractable, with status epilepticus (principal) | CPT/HCPCS: 36415; 80175 ==

== ENCOUNTER → 2024-04-28 | Outpatient (CLI) | payer BC | END | disposition home or self-care (01) | LOC: LABWHC1 09:51 | PROVIDERS: ATTEND Psychiatry & Neurology Neurology | DX: G40.209 Localization-related (focal) (partial) symptomatic epilepsy and epileptic syndromes with complex partial seizures, not intractable, without status epilepticus (principal) | CPT/HCPCS: 36415; 80175 ==

== ENCOUNTER → 2024-05-08 | Outpatient (CLI) | payer BC | END | disposition home or self-care (01) | LOC: LABWHC1 08:55 | PROVIDERS: ATTEND Psychiatry & Neurology Neurology | DX: G40.209 Localization-related (focal) (partial) symptomatic epilepsy and epileptic syndromes with complex partial seizures, not intractable, without status epilepticus (principal) | CPT/HCPCS: 36415; 80175 ==

== ENCOUNTER → 2024-06-11 | Outpatient (CLI) | payer BC | END | disposition home or self-care (01) | LOC: LABWHC1 09:36 | PROVIDERS: ATTEND Psychiatry & Neurology Neurology | DX: G40.209 Localization-related (focal) (partial) symptomatic epilepsy and epileptic syndromes with complex partial seizures, not intractable, without status epilepticus (principal) | CPT/HCPCS: 36415; 80175 ==

== ENCOUNTER → 2024-07-15 | Outpatient (CLI) | payer BC | END | disposition home or self-care (01) | LOC: LABWHC1 09:06 | PROVIDERS: ATTEND Psychiatry & Neurology Neurology | DX: G40.209 Localization-related (focal) (partial) symptomatic epilepsy and epileptic syndromes with complex partial seizures, not intractable, without status epilepticus (principal) | CPT/HCPCS: 36415; 80175 ==

== ENCOUNTER → 2024-07-18 | Outpatient (CLI) | payer BC ==
--- NOTE | 2024-07-18 12:31 | XR ---
EXAMINATION TYPE: XR chest 2V DATE OF EXAM: 07/18/2024 10:33 AM COMPARISON: None CLINICAL INDICATION: Female, 38 years old with history of R05.8 OTHER SPECIFIED COUGH; TECHNIQUE: XR chest 2V Frontal and lateral views of the chest. FINDINGS: Lungs/Pleura: There is no evidence of pleural effusion, focal consolidation, or pneumothorax. Pulmonary vascularity: Unremarkable. Heart/mediastinum: Cardiomediastinal silhouette is unremarkable. Musculoskeletal: No acute osseous pathology. IMPRESSION: No acute cardiopulmonary disease/process. [facility], , 07/18/2024 12:29 PM
== END | disposition home or self-care (01) ==
LOC: RADXRMAIN 10:21
PROVIDERS: ATTEND Family Medicine
DX: R05.8 Other specified cough (principal)
CPT/HCPCS: 71046

== ENCOUNTER → 2024-10-14 | Outpatient (CLI) | payer BC ==
[2024-10-14 15:51] LABS: % Iron Saturation 32.39 (12.00-45.00); ALT 25 U/L (8-44); AST 34 U/L (13-35); Albumin 4.5 g/dL (3.8-4.9); Albumin/Globulin Ratio 1.67 Ratio (1.60-3.17); Alkaline Phosphatase 200 U/L (41-126); Bilirubin, Conjugated <0.20 mg/dL (0.20-0.40); Bilirubin,Unconjugated >0.10 mg/dL (0.20-1.00); Blood Urea Nitrogen 12.3 mg/dL (9.0-27.0); Ferritin 20.4 ng/mL (10.0-291.0); Globulin 2.7 g/dL (1.6-3.3); Hepatitis A Antibody IgM Nonreactive (Nonreactive); Hepatitis B Core IgM Nonreactive (Nonreactive); Hepatitis B Surface Antigen Nonreactive (Nonreactive); Hepatitis C IgG Antibody Nonreactive (Nonreactive); Iron 126 UG/DL (50-170); Total Bilirubin 0.3 mg/dL (0.3-1.2); Total Iron Binding Capacity 389 UG/DL (228-460); Total Protein 7.2 g/dL (6.2-8.2)
[2024-10-14 16:02] LABS: Ceruloplasmin 34.7 mg/dL (20.0-60.0)
== END | disposition home or self-care (01) ==
LOC: LABWHC1 09:01
PROVIDERS: ATTEND Family Medicine
DX: R74.8 Abnormal levels of other serum enzymes (principal)
CPT/HCPCS: 36415; 80074; 80076; 82390; 82565; 82728; 83036; 83516; 83540; 83550; 84520

== ENCOUNTER → 2024-10-28 | Outpatient (CLI) | payer BC ==
--- NOTE | 2024-10-28 15:34 | CT ---
EXAMINATION TYPE: CT abdomen pelvis wo/w con DATE OF EXAM: 10/28/2024 COMPARISON: None CLINICAL INDICATION: Female, 39 years old with history of R10.11 RIGHT UPPER QUADRANT PAIN; PHH, RUQ pain, abnormal labs TECHNIQUE: Performed with Oral Contrast and without and with IV Contrast, patient injected with 100ml mL of Isov ue 300. CT DLP: 615.[address] CTDI: mGy Automated exposure control for dose reduction was used. FINDINGS: The lung bases are clear. The gallbladder is normal without distention, wall thickening, pericholecystic fluid or gallstones. T here is no biliary ductal dilatation. There is no focal mass or organomegaly involving the liver, pancreas, spleen or adrenal glands. There is no solid renal mass or hydronephrosis and there is homogeneous contrast enhancement of the r enal parenchyma. The caliber the abdominal aorta is normal is no retroperitoneal adenopathy or hemorr mary. The bowel loops are normal in caliber and there is no evidence of dilatation or obstruction. No infla mmatory changes are identified in the bowel wall or mesentery. There is no free intraperitoneal air or fluid. No pelvic mass, free fluid, abscess or adenopathy. The osseous structures and soft tissues are intact. IMPRESSION: No significant abnormality seen. [facility], Workstation: RORY 10/28/2024 3:31 PM
== END | disposition home or self-care (01) ==
LOC: RADCTMAIN 13:25
PROVIDERS: ATTEND Family Medicine
DX: R10.11 Right upper quadrant pain (principal)
CPT/HCPCS: 74178; Q9967